=== PATIENT | male | born 1970 | race Two or more races ===

== ENCOUNTER 2021-10-19 08:34 | Outpatient (CLI) | payer BC | END 2021-10-19 08:42 | disposition home or self-care (01) | LOC: SONOGRAMA 08:34 | DX: M25.511 Pain in right shoulder (principal) ==

== ENCOUNTER 2021-11-09 09:24 | Outpatient (CLI) | payer BC | END 2021-11-09 09:51 | disposition home or self-care (01) | LOC: MRI 09:24 | DX: M75.121 Complete rotator cuff tear or rupture of right shoulder, not specified as traumatic (principal) | CPT/HCPCS: 73218 ==